=== PATIENT | male | born 1990 | race Two or more races ===

== ENCOUNTER 2020-03-02 17:01 | Emergency (ER) | payer MEDICAID ==
[~2020-03-02] VITALS: Ht 182.9 cm; Wt 69.4 kg
--- NOTE | 2020-03-02 17:51 | NUR ---
PT BIB [facility] WITH A C/O HEAD INJURY. PT WAS FOUND ON THE GROUND ON A MATTRESS WITH A LAC ON HIS HEAD. PT IS ON BLOOD THINNERS AND THE FACILITY WOULD LIKE TO HAVE A HEAD CT. PT WAS TRIAGED AND TAKEN TO ROOM #3.
--- NOTE | 2020-03-02 17:54 | NUR ---
Charlotte dueñas in [facility] - 03/02/20 at 1821 by [email or web address] PT IS GOING TO CT VIA [facility]
--- NOTE | 2020-03-02 17:54 | NUR ---
PT IS GOING TO CT VIA [facility]
--- NOTE | 2020-03-02 17:54 | NUR ---
Charlotte dueñas in [facility] - 03/02/20 at 1821 by [email or web address] PT IS GOIGN TO CT VIA [facility]
[2020-03-02 17:56] LABS: BASOPHILS # (AUTO) 0.1 /CMM (0.0-0.2); BASOPHILS % (AUTO) 0.6 % (0.0-2.0); EOSINOPHILS % (AUTO) 5.1 % (0.0-6.0); HEMATOCRIT 38 % (39-51); LYMPHOCYTES # (AUTO) 3.6 /CMM (0.8-4.8); LYMPHOCYTES % (AUTO) 42.1 % (20.0-44.0); MEAN CORPUSCULAR HGB CONC 35 g/dl (31.0-36.0); MEAN CORPUSCULAR VOLUME 88 fL (80-96); MONOCYTES # (AUTO) 0.6 /CMM (0.1-1.30); NEUTROPHILS # (AUTO) 3.9 /CMM (1.8-8.9); NEUTROPHILS % (AUTO) 45.2 % (43.0-81.0); PLATELET COUNT (AUTO) 277 /CMM (150-450); WHITE BLOOD COUNT (AUTO) 8.6 K/uL (4.3-11.0)
[2020-03-02 18:04] LABS: CALCIUM, SERUM 9.3 mg/dL (8.5-10.1); CREATININE 0.7 mg/dL (0.6-1.3)
[2020-03-02 18:10] LABS: BILIRUBIN,TOTAL 0.4 mg/dL (0.2-1.0); TOTAL PROTEIN, SERUM 7.1 g/dL (6.4-8.2)
--- NOTE | 2020-03-02 18:10 | NUR ---
PT RETURNED FROM CT. PT WOULD NOT STAY STILL
--- NOTE | 2020-03-02 18:21 | NUR ---
PT IS GOING TO CT VIA [facility]
--- NOTE | 2020-03-02 18:25 | NUR ---
PT RETURNED FROM CT. PT WOULD NOT STAY STILL FOR CT. NOTIFIED.
[2020-03-02] MEDS ORDERED: IV NS 0.9% 1,000 ML BAG IV ONE (18:30)
--- NOTE | 2020-03-02 18:49 | NUR ---
EKG IN PROGRESS
--- NOTE | 2020-03-02 19:09 | NUR ---
PT WAS TRYING TO BITE OFF THE IV. IV WAS COVERED WITH KERLEX. PT IS ON THE MONITOR AND CONTINUOUS PULSE OX.
[2020-03-02] MEDS ORDERED: MIDAZOLAM HCL 2 MG/2ML VIAL ONE (19:22)
[2020-03-02] MEDS ORDERED: MIDAZOLAM HCL 2 MG/2ML VIAL IV ONE ×2 (19:30)
--- NOTE | 2020-03-02 19:32 | NUR ---
PT LEFT FOR CT VIA GURNEY WITH RT AND ASA DAVID.
--- NOTE | 2020-03-02 19:48 | NUR ---
PT RETURNED FROM CT.
--- NOTE | 2020-03-02 20:01 | NUR ---
PT APPEARS CALM AND IS STILL TRYING TO REMOVE THE PULSE OX FROM HIS EAR. PT SMILES AND LAUGHS WHEN I TALK TO HIM. WILL CONTINUE TO MONITOR THE PT. VSS.
--- NOTE | 2020-03-02 20:24 | NUR ---
[facility] ETA 2100
--- NOTE | 2020-03-02 20:41 | NUR ---
CALLED [facility] AND SPOKE TO ASA BENNETT RE: PT RETURNING.
[2020-03-02 20:57] VITALS: BP 120/71
== END 2020-03-02 20:58 | disposition home or self-care (01) ==
LOC: ER 17:08
DX: S01.01XA Laceration without foreign body of scalp, initial encounter (principal); M24.542 Contracture, left hand; M24.541 Contracture, right hand; R51 Headache; M54.2 Cervicalgia; G93.40 Encephalopathy, unspecified; I48.91 Unspecified atrial fibrillation; I10 Essential (primary) hypertension; K21.9 Gastro-esophageal reflux disease without esophagitis; Z93.0 Tracheostomy status; Z98.890 Other specified postprocedural states; W18.39XA Other fall on same level, initial encounter; Y93.89 Activity, other specified; Y92.89 Other specified places as the place of occurrence of the external cause; Y99.8 Other external cause status
CPT/HCPCS: 36415; 70450; 72125; 80053; 85025; 93005; 96374; 99285; J2250; J7030

== ENCOUNTER 2021-03-21 21:44 | Emergency (ER) | payer MEDICAID ==
[~2021-03-21] VITALS: Ht 182.9 cm; Wt 66.2 kg
[2021-03-21 21:45] VITALS: BP 107/64
[2021-03-21] MEDS ORDERED: DIATR MEGLU/DIATRIZOATE SODIUM 30 ML BOTTLE (GASTROGRAPHIN) ONE (22:12)
--- NOTE | 2021-03-21 22:26 | NUR ---
[id number] AT BEDSIDE FOR TRANSPORTED BACK TO FACILITY. PT WAS BROUGHT IN BY THE SAME CREW AND JUST WAITED FOR THE PROCEDURE TO BE DONE.
--- NOTE | 2021-03-21 22:33 | NUR ---
REPORT GIVEN TO NURSE LI FOR ANIYA
--- NOTE | 2021-03-21 22:45 | NUR ---
PT LEFT ON GURNEY WITH 2 EMT. PT IS IN STABLE CONDITION FOR TRANSPORT. REPORT GIVEN
== END 2021-03-21 22:45 | disposition home or self-care (01) ==
LOC: ER 21:47
DX: K94.23 Gastrostomy malfunction (principal); I10 Essential (primary) hypertension; G93.40 Encephalopathy, unspecified; I48.91 Unspecified atrial fibrillation; K21.9 Gastro-esophageal reflux disease without esophagitis
CPT/HCPCS: 43762; 74018; 99284; Q9963